=== PATIENT | male | born 1960 | race Native Hawaiian/Other Pacific Islander ===

== ENCOUNTER 2024-08-09 08:21 | Outpatient (REF) | payer OTHER, SELFPAY | END 2024-08-09 08:22 | disposition home or self-care (01) | LOC: HO.HOSX 08:21 | PROVIDERS: Visit Provider Physician Assistant | DX: M17.11 Unilateral primary osteoarthritis, right knee (principal); M25.562 Pain in left knee | CPT/HCPCS: 73560; 73562 ==

== ENCOUNTER 2024-08-09 13:33 | Outpatient (AMB) | payer OTHER, SELFPAY ==
[2024-08-09 14:03] VITALS: BMI 31.6
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
== END 2024-08-09 14:47 | disposition home or self-care (01) ==
PROVIDERS: Visit Provider Physician Assistant
DX: M17.11 Unilateral primary osteoarthritis, right knee (principal)
CPT/HCPCS: 99203; G2211